=== PATIENT | male | born 1960 | race American Indian/Alaskan Native ===

== ENCOUNTER 2020-12-26 16:59 | Emergency (ER) | payer OTHER ==
[2020-12-26 21:55] VITALS: BP 129/89
== END 2020-12-26 22:00 | disposition home or self-care (01) ==
LOC: ED 16:59
DX: R03.0 Elevated blood-pressure reading, without diagnosis of hypertension (principal); F17.200 Nicotine dependence, unspecified, uncomplicated; Z79.1 Long term (current) use of non-steroidal anti-inflammatories (NSAID); Z79.899 Other long term (current) drug therapy
CPT/HCPCS: 36415; 70450; 80053; 83735; 85025